=== PATIENT | female | born 1995 | race Caucasian/White ===

== ENCOUNTER 2022-05-26 13:04 | Emergency (ER) | payer OTHER, SELFPAY ==
[2022-05-26 13:05] VITALS: BP 182/85; PULSE 108; RESP 20; TEMP 36.1; O2SAT 100
--- NOTE | 2022-05-26 13:23 | ED.GENADULT ---
HPI - General Adult General Chief complaint: Unspecified Stated complaint: L side numbness to the face Time Seen by Provider: 05/26/22 13:17 History of Present Illness HPI narrative: Deanna is a 26F with a PMH of mood disorder and HTN as well as tobacco abuse that presented to the ED with worsening left facial paralysis for 2 days. She has never had this before. She is very scared she had a stroke given her high blood pressure. She has used some OTC eye drops. She has no other concerns. Related Data Home Medications Medication Instructions Recorded Confirmed fluoxetine 10 mg capsule 10 mg PO BID 05/26/22 05/26/22 hydrochlorothiazide 12.5 mg capsule 12.5 mg PO DAILY 05/26/22 05/26/22 hydroxyzine HCl 10 mg tablet 10 mg PO QHS PRN Insomnia 05/26/22 05/26/22 Allergies Allergy/AdvReac Type Severity Reaction Status Date / Time No Known Allergies Allergy Verified 05/26/22 13:21 Review of Systems Review of Systems: All systems reviewed & are unremarkable except as noted in HPI and below Exam Const: General: cooperative, healthy appearing, comfortable and no acute distress Nutritional Appearance: obese Orientation/consciousness: oriented to person, oriented to place and oriented to time HENMT: Other: normocephalic, atraumatic Eyes: General: appearance normal, both eyes and all related structures Neck: Other: normal to inspection Resp: Effort & Inspection: normal respiratory effort and able to speak in complete sentences Cardio: Rate: regular rate Skin: General skin exam: normal color and no rashes or lesions noted Neuro: General: oriented to person, oriented to place, oriented to time, gait normal and moves all extremities Cranial nerves: Yes Bilaterally intact EOM present and Yes Nystagmus not present Cognition (Neuro): normal cognition Speech: normal speech Gait exam (Neuro): Normal gait present Other: Left sided facial paralysis. There is no movement of the left face or forehead. Extrem: Other: no deformity Psych: Appearance: grossly normal Mental Status: mental status grossly normal Course Vital Signs Vital signs: Vital Signs Temperature 97 F L 05/26/22 13:05 Pulse Rate 108 H 05/26/22 13:05 Respiratory Rate 20 05/26/22 13:05 Blood Pressure 182/85 H 05/26/22 13:05 Pulse Oximetry 100 05/26/22 13:05 Oxygen Delivery Room Air 05/26/22 13:05 Temperature 97 F L 05/26/22 13:05 Pulse Rate 98 05/26/22 13:30 Respiratory Rate 20 05/26/22 13:30 Blood Pressure 172/75 H 05/26/22 13:30 Pulse Oximetry 100 05/26/22 13:30 Oxygen Delivery Room Air 05/26/22 13:05 Medical Decision Making Vital Signs Vital Signs: Vital Signs Temperature 97 F L 05/26/22 13:05 Pulse Rate 108 H 05/26/22 13:05 Respiratory Rate 20 05/26/22 13:05 Blood Pressure 182/85 H 05/26/22 13:05 Pulse Oximetry 100 05/26/22 13:05 Oxygen Delivery Room Air 05/26/22 13:05 Temperature 97 F L 05/26/22 13:05 Pulse Rate 98 05/26/22 13:30 Respiratory Rate 20 05/26/22 13:30 Blood Pressure 172/75 H 05/26/22 13:30 Pulse Oximetry 100 05/26/22 13:30 Oxygen Delivery Room Air 05/26/22 13:05 Discharge Plan Discharge Clinical Impression: Quinn's palsy Patient Disposition: Home, Self-Care Condition: Stable Instructions: Quinn Palsy (ED) Prescriptions: New prednisone 20 mg tablet 60 mg PO DAILY 7 Days Qty: 21 0RF Artificial Tears (PF) Dropperette 1 drp LEFT EYE .hourly PRN (Reason: dry eye(s)) Qty: 32 0RF Rx Instructions: 2 gtt per hour while awake No Action hydrochlorothiazide 12.5 mg Capsule 12.5 mg PO DAILY fluoxetine 10 mg Capsule 10 mg PO BID Rx Instructions: administer in the morning and at noon/midday hydroxyzine HCl 10 mg Tablet 10 mg PO QHS PRN (Reason: Insomnia) Follow-up/Referrals: Olive,VAUGHN Santana [Primary Care Provider] -
[2022-05-26] MEDS: predniSONE 20 MG TABLET 60 MG PO (13:29)
[2022-05-26 13:30] VITALS: BP 172/75; PULSE 98; RESP 20; O2SAT 100
== END 2022-05-26 13:35 | disposition home or self-care (01) ==
LOC: CHSED 13:33
PROVIDERS: Emergency Provider Family Medicine; PCP Registered Nurse
DX: G51.0 Bell's palsy (principal)
CPT/HCPCS: 99283; J7512

== ENCOUNTER 2022-12-01 20:00 | Emergency (ER) | payer OTHER, SELFPAY ==
--- NOTE | 2022-12-01 20:08 | ED.DENTAL ---
HPI - Dental/Oral General Chief complaint: Dental/Oral Stated complaint: Tooth Pain Time Seen by Provider: 12/01/22 20:08 Source: patient Mode of arrival: ambulatory Limitations: no limitations History of Present Illness HPI Narrative: 27-year-old female smoker with a history of mood disorder, hypertension, Quinn's palsy presents to the ER with -- dental pain for the past few days. the patient has ulceration of the gingiva on the medial side of the 2/3 molar. The patient felt that she was having an erupting molar and was poking around the 2/3 molar. No fever or chills. MD Complaint: tooth pain Location: Tooth # (14,15) Onset (ago): day(s) ( Three days) Severity: mild Relieving factors: nothing Exacerbating factors: nothing Treatment prior to arrival: none Related Data Home Medications Medication Instructions Recorded Confirmed fluoxetine 10 mg capsule 10 mg PO BID 05/26/22 05/26/22 hydrochlorothiazide 12.5 mg capsule 12.5 mg PO DAILY 05/26/22 05/26/22 hydroxyzine HCl 10 mg tablet 10 mg PO QHS PRN Insomnia 05/26/22 05/26/22 Allergies Allergy/AdvReac Type Severity Reaction Status Date / Time No Known Allergies Allergy Verified 05/26/22 13:21 Review of Systems Review of Systems: All systems reviewed & are unremarkable except as noted in HPI and below Constitutional: Constitutional: Reports as per HPI and Reports no additional constitutional complaints Eyes: Eyes: Reports as per HPI and Reports no additional eye complaints ENT: Reports system reviewed and no additional complaints, except as documented Comments: dental pain along with ulceration of the gingiva over medial 2/3 left upper molar Cardiovascular: Cardiovascular: Reports as per HPI and Reports no additional cardiovascular complaints Respiratory: Respiratory: Reports as per HPI and Reports no additional respiratory complaints Gastrointestinal: Gastrointestinal: Reports as per HPI and Reports no additional gastrointestinal complaints Genitourinary: Genitourinary: Reports no additional female genitourinary complaints Musculoskeletal: Musculoskeletal: Reports no additional musculoskeletal complaints Integumentary/Breasts: Skin/Breast: Reports system reviewed and no additional complaints, except as docu and Reports as per HPI Neurologic: Reports system reviewed and no additional complaints, except as documented and Reports as per HPI Psychiatric: Psychiatric: Reports no additional psychiatric complaints and Reports as per HPI Endocrine: Endocrine: Reports no additional endocrine complaints and Reports as per HPI Hematologic/Lymphatic: Hematologic/Lymphatic: Reports no additional hematologic/lymphatic complaints and Reports as per HPI Allergic/Immunologic: Allergic/Immunologic: Reports no additional allergic/immunologic complaints and Reports as per HPI [facility] Past Medical History Medical History (Updated 12/01/22 @ 21:14 by Callum Stuart MD) Hypertension Mood disorder Exam Const: General: healthy appearing and no acute distress Nutritional Appearance: well nourished Orientation/consciousness: patient oriented x3 Limitations: no limitations HENMT: Head: normal to inspection Ears: external ears normal Face/Nose/Sinus: Normal external nose present Face and sinus: normal facial exam Mouth: Yes Normal oral and palatal mucosa present Throat: posterior oropharynx normal Other: 2 cm ulceration over the left upper medial gum of 1st says/2nd molar Eyes: Conjunctivae: conjunctivae normal Pupils: Equal, round and reactive pupils present EOM: EOMs intact bilaterally Direct Ophthalmoscopy: no photophobia Neck: Neck: normal visual inspection, no lymphadenopathy and no meningeal signs Chest: Chest palpation & inspection: normal inspection of the chest Resp: Effort & Inspection: normal respiratory effort Auscultation: clear to auscultation bilaterally Cardio: Rate: regular rate Rhythm: regular rhythm GI: GI Palp: Yes Soft
[2022-12-01 20:13] VITALS: BP 125/84; PULSE 92; RESP 20; TEMP 36.9; O2SAT 97
[2022-12-01] MEDS: HYDROcodone/acetaminophen (*CRX) 5-325 MG TABLET 1 TAB PO (21:23)
[2022-12-01] MEDS: AMOXICILLIN/CLAVULANATE K 875-125 MG TAB 1 TABLET PO (21:24)
[2022-12-01 21:28] LABS: Pregnancy On Board Control Positive; Urine Pregnancy Test Negative
[2022-12-01 21:29] VITALS: BP 139/78; PULSE 81; RESP 18; TEMP 37.1; O2SAT 97
== END 2022-12-01 21:41 | disposition home or self-care (01) ==
PROVIDERS: Emergency Provider Internal Medicine Critical Care Medicine; PCP Registered Nurse
DX: K05.10 Chronic gingivitis, plaque induced (principal); I10 Essential (primary) hypertension
CPT/HCPCS: 81025; 99283; A9270